=== PATIENT | male | born 1950 | race Caucasian/White ===

== ENCOUNTER 2020-09-09 09:19 | Emergency (ER) | payer MEDICARE, OTHER, SELFPAY ==
[2020-09-09 09:20] VITALS: BP 134/71; PULSE 71; RESP 18; TEMP 36.6; O2SAT 100; BMI 31.6
--- NOTE | 2020-09-09 09:34 | CT_ITS ---
STUDY: CT ABDOMEN AND PELVIS WITHOUT CONTRAST REASON FOR EXAM: Male, 69 years old. Right flank pain RADIATION DOSAGE (If Supplied By Facility): CTDIvol = ( 16.50 ) mGy, DLP = ( 828.63 ) mGycm TECHNIQUE: Transaxial images were obtained from the dome of the diaphragm to the symphysis pubis without oral contrast, and without intravenous contrast. Sagittal and coronal images were reconstructed. Individualized dose optimization techniques were used for this CT. COMPARISON: None. FINDINGS: The visualized lung bases are unremarkable. The visualized portions of the heart are within normal limits. Normal liver. Normal gallbladder and extrahepatic biliary system. Normal spleen. Normal pancreas. Normal bilateral adrenal glands. 2 cm cyst in the right kidney. Minimal nonspecific perinephric stranding. No evidence of hydronephrosis or urinary tract stones. Normal visualized stomach. Normal small intestine. Fecal retention. No evidence of acute diverticulitis. The appendix is visualized and appears normal. There is atherosclerotic calcification of the abdominal aorta, without a demonstrated aneurysm. Normal inferior vena cava. Normal retroperitoneum. Normal urinary bladder. Enlarged prostate. Correlation with PSA level is recommended. Prostatic calcifications. Penile prosthesis is seen with penile pump of the right side of the bladder. Partially visualized metallic density in the region of the penis. Normal abdominal wall. Degenerative changes in the spine worse at the level of L5-S1 with grade 1 retrolisthesis of L5 over S1. CT/Abdomen/Pelvis without Cont IMPRESSION: 1. No evidence of hydronephrosis or urinary tract stones. 2. Enlarged prostate. Correlation with PSA level is recommended. 3. No evidence of acute diverticulitis, appendicitis or focal acute inflammatory process. 4. Penile prosthesis as described above. Electronically Signed: Pratik Milan MD at 10:15 EST Tel , Service support ,
--- NOTE | 2020-09-09 09:35 | ED.DCSUM_ITS ---
- ER Visit Summary Date of Service: 09/09/20 Chief Complaint: Right-sided back pain History of Present Illness: The patient is a [address] Pedraza. He ports he had right-sided back pain for the past 10 days. It is a sharp pain that is 10 of 10 with movement and he is pain-free at rest. He denies any associated nausea or vomiting. He reports he had one episode of diarrhea yesterday. No blood in his stools or black tarry stools. He had frequent urination, but no dysuria or hematuria. Patient does not have a personal or family history of kidney stones. He denies any pain that preceded this. No fall, MVA, or change in activity. Physical Examination: Vitals: Stable. Afebrile. General: Well-nourished and well-developed. Head: Normocephalic atraumatic. Neck: Supple, no lymphadenopathy. No JVD. Nontender. Cardiovascular: Regular rate and rhythm. No murmurs. Respiratory: No respiratory distress. Clear to auscultation bilaterally. Abdominal: Soft, nontender, nondistended, normal bowel sounds. No guarding, rebound, or peritoneal signs. Back: Nontender. No vertebral or paraspinous muscular tenderness to palpation. No CVA tenderness. Extremities: Nontender, no edema. Skin: Normal color, no rash. Neurologic: Alert and oriented ?3. Cranial nerves II through XII are intact. Normal strength and sensation. Psych: Normal affect. Test Results: CBC shows hematocrit of 39.5, lymphocytes of 18, monocytes of 11. Chem-7 shows sodium 132, glucose 150, BUN of 19. UA is normal. Clinical Impression(s) from Imaging Studies Abdomen/Pelvis CT 09/09/20 09:34 IMPRESSION: 1. No evidence of hydronephrosis or urinary tract stones. 2. Enlarged prostate. Correlation with PSA level is recommended. 3. No evidence of acute diverticulitis, appendicitis or focal acute inflammatory process. 4. Penile prosthesis as described above. Electronically Signed: Pratik Milan MD at 10:15 EST Tel , Service support , Emergency Department Course and Treatment: Patient refused pain or nausea medications. He is resting comfortably. Treatment Plan: Patient be discharged prescription for 10 [place] and Colace. He is instructed use a TENS unit and heating pad. Follow-up his primary care physician in 3 to 5 days if not improving. Return to the emergency department for any worsening symptoms. Disposition: To home in improved and stable condition. Impression: One. Back pain. This note was generated with [employer] dictation software. It may contain incorrect words, spelling, and punctuation that were not noted in review of the chart prior to signing ED Disposition - Plan for ED Patient: Instructions: ED Back Pain (Acute or Chronic) Prescriptions: Docusate Sodium [Colace] 100 mg PO DAILY #20 capsule Hydrocodone Bitart/Apap 5-325 [[place] 5MG-325MG] 1 tablet PO Q4H PRN PRN 2 Days #10 tablet PRN Reason: Pain Referrals: Salomon Pedraza MD [Primary Care Provider] - 3-5 Days if not improving
[2020-09-09 09:43] LABS: Absolute Lymphocyte Count 1.54 X10^3/uL (0.83-4.51); Absolute Neutrophil Count 5.7 X10^3/uL (2.0-7.7); Basophil# 0.07 X10^3/uL; Basophil% 0.8 % (0-1); Eosinophil# 0.15 X10^3/uL; Eosinophils% 1.8 % (0-5); Hematocrit 39.5 % (40-54); Hemoglobin 13.7 g/dL (13.0-16.5); Lymphocyte # 1.54 X10^3/ul (4.0); Lymphocyte % 18.4 % (19-41); Mean Corp Hgb Conc 34.7 g/dL (32-36); Mean Corpuscular Hgb 30.9 pg (27.0-32.0); Mean Corpuscular Volume 89.2 fL (80-94); Mean Platelet Vol. 9.6 fl (6.2-12.0); Monocyte# 0.91 X10^3/uL; Monocyte% 10.9 % (0-10); NRBC Flagged by Analyzer 0 % (0-5); Neutrophil # 5.67 X10^3/uL (2.7-7.7); Neutrophil % 67.6 % (47-70); Platelet Count 230 K/mm3 (150-450); RBC Distribution Width SD 39.2 fl (35.1-43.9); Red Blood Count 4.43 M/mm3 (4.6-6.2); White Blood Count 8.4 K/mm3 (4.4-11.0)
[2020-09-09 09:44] VITALS: BP 147/83; PULSE 72; RESP 20
[2020-09-09 09:45] LABS: Bacteria 0 SEEN /hpf (None Seen); Mucous, Urine 0 SEEN /hpf (<or=2+); Red Blood Cells-Urine 0 SEEN /hpf (0-5); Squamous Epithelial Cells - UA 0 SEEN /hpf (0-5); White Blood Cells 0 SEEN /hpf (0-5)
[2020-09-09 09:56] LABS: Anion Gap 5 (5-15); BUN 19 mg/dL (7-18); BUN/Creat Ratio 16.5 RATIO (10-20); Chloride 98 mmol/L (98-107); Creatinine, Serum 1.15 mg/dL (0.70-1.30); EST Glomerular Filtration Rate 67 mL/min (>60); Est Glom Filt Rate - Afr Amer 81 mL/min (>60); Estimated Creatinine Clearance 51.99 ml/min; Glucose 150 mg/dL (74-106); Potassium 4.1 mmol/L (3.5-5.1); Sodium Level 132 mmol/L (136-145)
[2020-09-09 09:59] LABS: Color, Urine Yellow (Yellow); Glucose, Dipstick Normal (Normal); Ketone-Dipstick Negative (Negative); Leukocyte Esterase-Dipstick Negative /ul (Negative); Nitrite-Dipstick Negative (Negative); Occult Blood-Urine Negative /ul (Negative); Protein-Dipstick Negative (Negative); Urine Bilirubin Dipstick Negative (Negative); Urine Clarity Clear (Clear); Urine Urobilinogen Normal (Normal)
[2020-09-09] MEDS: 0.9% Normal Saline 1,000 ML 250 ML IV (10:00)
[2020-09-09 10:46] VITALS: BP 132/62; PULSE 72; RESP 16
== END 2020-09-09 10:47 | disposition home or self-care (01) ==
LOC: ED 10:11
PROVIDERS: Emergency Provider Emergency Medicine; PCP Internal Medicine
DX: M54.9 Dorsalgia, unspecified (principal); R19.7 Diarrhea, unspecified; R35.0 Frequency of micturition; F32.9 Major depressive disorder, single episode, unspecified; Z79.899 Other long term (current) drug therapy
CPT/HCPCS: 74176; 80048; 81001; 85025; 96360; 99283; J7030; A4216

== ENCOUNTER 2021-10-22 18:35 | Emergency (ER) | payer MEDICARE, SELFPAY ==
[2021-10-22 18:36] VITALS: BP 164/67; PULSE 83; RESP 15; TEMP 36; O2SAT 99; BMI 30.7
--- NOTE | 2021-10-22 19:10 | EDS_ITS ---
HPI History of Present Illness Chief Complaint: Hyperglycemia Informant: patient Onset/Context/Timing Onset: Today Narrative Narrative: Patient states he was just not quite feeling well today. Mild headache is noted. No chest pain or shortness of breath. No abdominal pain, nausea, vomiting, or diarrhea. Patient states he checked his blood sugar today and it was 403. He does not normally check his blood sugars but last he knows usually runs in the low 100s. He is on alogliptin and glipizide XL. He denies any recent medication changes or diet changes. [facility] Medical History Bipolar disorder BPH (benign prostatic hyperplasia) Depression Diabetes High cholesterol Hypertension Home Medications escitalopram oxalate [Lexapro] 5 mg PO DAILY 02/16/15 [History Last Taken Unknown] alogliptin 25 mg PO DAILY 09/09/20 [History Last Taken Unknown] amlodipine 10 mg PO DAILY 09/09/20 [History Last Taken Unknown] atorvastatin 20 mg PO QHS 09/09/20 [History Last Taken Unknown] bupropion HCl 150 mg PO DAILY 09/09/20 [History Last Taken Unknown] docusate sodium 100 mg PO DAILY #20 cap 09/09/20 [Rx Last Taken Unknown] hydrochlorothiazide 12.5 mg PO DAILY 09/09/20 [History Last Taken Unknown] lisinopril 40 mg PO DAILY 09/09/20 [History Last Taken Unknown] magnesium oxide 430 mg PO DAILY 09/09/20 [History Last Taken Unknown] metformin 1,000 mg PO BID 09/09/20 [History Last Taken Unknown] tamsulosin 0.4 mg PO QHS 09/09/20 [History Last Taken Unknown] ziprasidone HCl 20 mg PO BID 09/09/20 [History Last Taken Unknown] Allergy/AdvReac Type Severity Reaction Status Date / Time No Known Allergies Allergy Verified 09/09/20 09:22 Social History Smoking Status: Never smoker ROS ROS ED Constitutional Constitutional ED: Denies chills or fever(s) Eyes Eyes: Denies change in vision ENT ENT ED: Denies sore throat Cardiovascular Cardiovascular: Denies chest pain Respiratory/Chest Respiratory/Chest: Denies cough or dyspnea Gastrointestinal Gastrointestinal: Denies abdominal pain, diarrhea, nausea or vomiting Genitourinary Genitourinary ED: Denies dysuria Musculoskeletal Musculoskeletal: Denies back pain Integumentary Denies rash Neurologic Neurologic: Reports headache(s); Denies weakness Allergic/Immunologic Allergic/Immunologic ED: Denies urticaria EXAM Physical Exam Const Vital Signs: 10/22/21 18:36 10/22/21 19:25 10/22/21 20:11 Temperature 96.8 F L Temperature Source Temporal Pulse Rate 83 Pulse Rate [Lying] 79 Pulse Rate [Sitting (for 1 minute prior to obtaining)] 81 Pulse Rate [Standing (for 1 minute prior to obtaining)] 82 Respiratory Rate 15 Respiratory Effort Normal Respiratory Pattern Normal Blood Pressure 164/67 H Blood Pressure [Lying] 136/68 H Blood Pressure [Sitting (for 1 minute prior to obtaining)] 135/63 H Blood Pressure [Standing (for 1 minute prior to obtaining)] 133/78 H Blood Pressure Mean 99 Blood Pressure Mean [Lying] 90 Blood Pressure Mean [Sitting (for 1 minute prior to obtaining)] 87 Blood Pressure Mean [Standing (for 1 minute prior to obtaining)] 96 Pulse Ox 99 Oxygen Delivery Method Room Air 10/22/21 20:52 10/22/21 22:02 Temperature Temperature Source Pulse Rate 66 66 Pulse Rate [Lying] Pulse Rate [Sitting (for 1 minute prior to obtaining)] Pulse Rate [Standing (for 1 minute prior to obtaining)] Respiratory Rate 16 18 Respiratory Effort Respiratory Pattern Blood Pressure 136/78 H 132/74 H Blood Pressure [Lying] Blood Pressure [Sitting (for 1 minute prior to obtaining)] Blood Pressure [Standing (for 1 minute prior to obtaining)] Blood Pressure Mean 97 93 Blood Pressure Mean [Lying] Blood Pressure Mean [Sitting (for 1 minute prior to obtaining)] Blood Pressure Mean [Standing (for 1 minute prior to obtaining)] Pulse Ox 98 98 Oxygen Delivery Method Room Air Room Air Positive well nourished and well developed General Appearance ED: well developed HEENT Reports normocephalic and head/scalp atraumatic Eyes PERRL and EOMs intact bilaterally Neck supple Chest Wall inspection of chest normal and palpation of chest normal Resp normal respiratory effort and clear to auscultation bilaterally Cardio regular rate and regular rhythm GI normal to inspection, nondistended, normoactive bowel sounds and non-tender Palpation: soft Back/Spine no CVA tenderness Extremity normal to inspection Neuro oriented x3 and no sensory deficits noted Sensorium / Orientation: alert Motor Exam: strength 5/5 throughout Psych mental status grossly normal Skin no rashes or lesions noted MDM MDM MDM Narrative Medical decision making narrative: Patient given a liter IV fluids. Lab work obtained. Lab Data Attestation: I reviewed the patient's lab results. Labs: Laboratory Results - last 24 hr 10/22/21 10/22/21 10/22/21 19:20 19:20 19:20 WBC 7.9 RBC 4.51 L Hgb 14.0 Hct 40.1 MCV 88.9 MCH 31.0 MCHC 34.9 RDW Std Deviation 38.8 RDW Coeff of Pedro 12.0 Plt Count 232 MPV 10.3 Immature Gran % (Auto) 0.300 Neut % (Auto) 70.9 H Lymph % (Auto) 16.0 L Moody % (Auto) 7.0 Eos % (Auto) 5.0 Baso % (Auto) 0.8 Absolute Neuts (auto) 5.6 Absolute Lymphs (auto) 1.26 Nucleated RBC % 0 Sodium 136 Potassium 4.0 Chloride 101 Carbon Dioxide 28.0 Anion Gap 7 BUN 18 Creatinine 1.26 Estim Creat Clear Calc 47.82 Est GFR (MDRD) Af Amer 72 Est GFR (MDRD) Non-Af 60 BUN/Creatinine Ratio 14.3 Glucose 398 H Hemoglobin A1c Calcium 8.9 Urine Color Urine Clarity Urine pH Ur Specific [place] Urine Protein Urine Glucose (UA) Urine Ketones Urine Occult Blood Urine Nitrite Urine Bilirubin Urine Urobilinogen Ur Leukocyte Esterase Urine RBC Urine WBC Ur Squamous Epith Cells Urine Bacteria Urine Mucus Acetone Level NEGATIVE POC Glucose 10/22/21 10/22/21 10/22/21 19:20 20:21 20:51 WBC RBC Hgb Hct MCV MCH MCHC RDW Std Deviation RDW Coeff of Pedro Plt Count MPV Immature Gran % (Auto) Neut % (Auto) Lymph % (Auto) Moody % (Auto) Eos % (Auto) Baso % (Auto) Absolute Neuts (auto) Absolute Lymphs (auto) Nucleated RBC % Sodium Potassium Chloride Carbon Dioxide Anion Gap BUN Creatinine Estim Creat Clear Calc Est GFR (MDRD) Af Amer Est GFR (MDRD) Non-Af BUN/Creatinine Ratio Glucose Hemoglobin A1c 7.1 H Calcium Urine Color Yellow Urine Clarity Clear Urine pH 6.0 Ur Specific [place] 1.010 Urine Protein Negative Urine Glucose (UA) 1000 H Urine Ketones Negative Urine Occult Blood Negative Urine Nitrite Negative Urine Bilirubin Negative Urine Urobilinogen Normal Ur Leukocyte Esterase Negative Urine RBC 0 SEEN Urine WBC 0 SEEN Ur Squamous Epith Cells 0-5 SEEN Urine Bacteria 0 SEEN Urine Mucus 0 SEEN Acetone Level POC Glucose 295 H Treatment and Re-Evaluation Narrative: Lab work reveals normal CBC and chemistry studies. Glucose is 398. Hemoglobin A1c is 7.1. Urinalysis significant only for glucose. After liter of IV fluid blood sugar is 295. Patient is given 4 units of subcu insulin as he does not normally use insulin. After 1 hour blood sugar still 269. He did take metformin prior to coming in. In light of the fact the patient is going home to sleep I did not want to drop him too low. I will leave the blood sugar at this level. His labs today were printed for [facility] to [facility]. Patient and are comfortable this plan. Discharge Plan Triage Chief Complaint: Hyperglycemia ED Provider: Mabel Carreon Dx/Rx/DC Orders Clinical Impression: Hyperglycemia Instructions: ED Diabetic Hyperglycemia Prescriptions: No Action escitalopram oxalate [Lexapro] 5 MG tablet 5 mg PO DAILY RF: 0 bupropion HCl 150 MG tablet sustained-release 12 hr 150 mg PO DAILY RF: 0 atorvastatin 20 MG tablet 20 mg PO QHS RF: 0 ziprasidone HCl 20 MG capsule 20 mg PO BID RF: 0 tamsulosin 0.4 MG capsule 0.4 mg PO QHS RF: 0 amlodipine 10 MG tablet 10 mg PO DAILY RF: 0 hydrochlorothiazide 25 MG tablet 12.5 mg PO DAILY RF: 0 lisinopril 40 MG tablet 40 mg PO DAILY RF: 0 metformin 1,000 MG tablet extended release 24hr 1,000 mg PO BID RF: 0 alogliptin 25 MG tablet 25 mg PO DAILY RF: 0 magnesium oxide 200 MG tablet 430 mg PO DAILY RF: 0 docusate sodium 100 MG capsule 100 mg PO DAILY Qty: 20 RF: 0 Primary Care Provider: Salomon Pedraza Referrals: Salomon Pedraza MD [Primary Care Provider] - Activity Restrictions/Additional Instructions: [facility] with [facility] tomorrow as discussed. A copy of your lab work is available for you to take along. Disposition Disposition: Home, Self Care
[2021-10-22] MEDS: 0.9% Normal Saline 1,000 ML 1000 ML IV (19:29)
[2021-10-22 19:36] LABS: Absolute Lymphocyte Count 1.26 X10^3/uL (0.83-4.51); Absolute Neutrophil Count 5.6 X10^3/uL (2.0-7.7); Basophil# 0.06 X10^3/uL; Basophil% 0.8 % (0-1); Eosinophil# 0.39 X10^3/uL; Hematocrit 40.1 % (40-54); Lymphocyte # 1.26 X10^3/ul (0.83-4.51); Mean Corp Hgb Conc 34.9 g/dL (32-36); Mean Corpuscular Volume 88.9 fL (80-94); Mean Platelet Vol. 10.3 fl (6.2-12.0); Monocyte# 0.55 X10^3/uL; NRBC Flagged by Analyzer 0 % (0-5); Neutrophil # 5.59 X10^3/uL (2.7-7.7); Neutrophil % 70.9 % (47-70); Platelet Count 232 K/mm3 (150-450); RBC Distribution Width SD 38.8 fl (35.1-43.9); Red Blood Count 4.51 M/mm3 (4.6-6.2); White Blood Count 7.9 K/mm3 (4.4-11.0)
[2021-10-22 19:52] LABS: Anion Gap 7 (5-15); BUN 18 mg/dL (7-18); BUN/Creat Ratio 14.3 RATIO (10-20); Calcium,Total 8.9 mg/dL (8.5-10.1); Chloride 101 mmol/L (98-107); Creatinine, Serum 1.26 mg/dL (0.70-1.30); EST Glomerular Filtration Rate 60 mL/min (>60); Est Glom Filt Rate - Afr Amer 72 mL/min (>60); Estimated Creatinine Clearance 47.82 ml/min; Glucose 398 mg/dL (74-106); Sodium Level 136 mmol/L (136-145)
[2021-10-22 20:00] LABS: Hemoglobin A1c 7.1 % (3.8-5.6)
[2021-10-22 20:11] VITALS: BP 133/78; BP 135/63; BP 136/68; PULSE 79; PULSE 81; PULSE 82
[2021-10-22 20:27] LABS: Bacteria 0 SEEN /hpf (None Seen); Mucous, Urine 0 SEEN /hpf (<or=2+); Red Blood Cells-Urine 0 SEEN /hpf (0-5); White Blood Cells 0 SEEN /hpf (0-5)
[2021-10-22 20:29] LABS: Color, Urine Yellow (Yellow); Glucose, Dipstick 1000 mg/dl (Normal); Ketone-Dipstick Negative (Negative); Leukocyte Esterase-Dipstick Negative /ul (Negative); Nitrite-Dipstick Negative (Negative); Occult Blood-Urine Negative /ul (Negative); Protein-Dipstick Negative (Negative); Urine Bilirubin Dipstick Negative (Negative); Urine Clarity Clear (Clear); Urine Urobilinogen Normal (Normal)
[2021-10-22 20:50] LABS: Squamous Epithelial Cells - UA 0-5 SEEN /hpf (0-5)
[2021-10-22 20:52] VITALS: BP 136/78; PULSE 66; RESP 16; O2SAT 98
[2021-10-22 20:56] LABS: Bedside Glucose 295 mg/dL (74-106)
[2021-10-22] MEDS: Insulin Lispro 100 UNIT/ML INSULN.PEN SC (21:07)
[2021-10-22 22:02] VITALS: BP 132/74; PULSE 66; RESP 18; O2SAT 98
[2021-10-22 22:10] LABS: Bedside Glucose 269 mg/dL (74-106)
[2021-10-22 22:16] VITALS: BP 134/78; PULSE 78; RESP 14; TEMP 36.7; O2SAT 98
== END 2021-10-22 22:17 | disposition home or self-care (01) ==
PROVIDERS: Emergency Provider Emergency Medicine; PCP Internal Medicine; Visit Provider Emergency Medicine
DX: E11.65 Type 2 diabetes mellitus with hyperglycemia (principal); F31.9 Bipolar disorder, unspecified; I10 Essential (primary) hypertension; Z79.84 Long term (current) use of oral hypoglycemic drugs; E78.00 Pure hypercholesterolemia, unspecified; Z79.899 Other long term (current) drug therapy; N40.0 Benign prostatic hyperplasia without lower urinary tract symptoms
CPT/HCPCS: 80048; 81001; 82009; 82962; 83036; 85025; 96360; 96372; 99284; J7030; A4216

== ENCOUNTER 2022-07-28 08:51 | Emergency (ER) | payer MEDICARE, SELFPAY ==
[2022-07-28 08:52] VITALS: BP 156/70; PULSE 88; RESP 18; TEMP 36.4; O2SAT 100; BMI 30.7
--- NOTE | 2022-07-28 09:02 | EDS_ITS ---
HPI History of Present Illness Chief Complaint: Upper Extremity Injury Informant: patient Occured/Mechanism Comment: None Onset/Context/Timing Onset: Days (5) Timing: Intermittent Location: Posterior L shoulder Current Severity: Mild Maximum Severity: Severe Associated Symptoms Associated Symptoms: Negative for Parasthesia, Weakness or Loss of Funtion Narrative Recent Illness/Hospitalization: Yes (URI, no fevers) [facility] Medical History Bipolar disorder BPH (benign prostatic hyperplasia) Depression Diabetes High cholesterol Hypertension Home Medications escitalopram oxalate 5 mg tablet (Lexapro) 10 mg PO DAILY 02/16/15 [History Last Taken Unknown] alogliptin 25 mg tablet 12.5 mg PO DAILY 09/09/20 [History Last Taken Unknown] amlodipine 10 mg tablet 10 mg PO DAILY 09/09/20 [History Last Taken Unknown] atorvastatin 20 mg tablet 20 mg PO QHS 09/09/20 [History Last Taken Unknown] bupropion HCl 150 mg tablet,12 hr sustained-release 150 mg PO DAILY 09/09/20 [History Last Taken Unknown] hydrochlorothiazide 25 mg tablet 25 mg PO DAILY 09/09/20 [History Last Taken Unknown] lisinopril 40 mg tablet 40 mg PO DAILY 09/09/20 [History Last Taken Unknown] magnesium oxide 420 mg PO DAILY 09/09/20 [History Last Taken Unknown] metformin 1,000 mg tablet,extended release 24hr 1,000 mg PO BID 09/09/20 [History Last Taken Unknown] tamsulosin 0.4 mg capsule 0.4 mg PO QHS 09/09/20 [History Last Taken Unknown] ziprasidone HCl 20 mg capsule 20 mg PO BID 09/09/20 [History Last Taken Unknown] cholecalciferol (vitamin D3) 50 mcg (2,000 unit) capsule (Vitamin D3) 50 mcg PO DAILY 07/28/22 [History Last Taken Unknown] glipizide 2.5 mg tablet, extended release 24 hr 2.5 mg PO BREAKFAST 07/28/22 [History Last Taken Unknown] meloxicam 15 mg tablet 15 mg PO PRN PRN Pain 07/28/22 [History Last Taken Unknown] Allergy/AdvReac Type Severity Reaction Status Date / Time No Known Allergies Allergy Verified 07/28/22 09:02 Social History Smoking Status: Former smoker ROS ROS ED Constitutional Constitutional ED: Denies chills or fever(s) Eyes Eyes: Denies blurry vision ENT ENT ED: Denies ear pain Cardiovascular Cardiovascular: Denies chest pain, palpitations or racing heartbeat Respiratory/Chest Respiratory/Chest: Denies cough, dyspnea or dyspnea on exertion Gastrointestinal Gastrointestinal: Denies abdominal pain, nausea or vomiting Genitourinary Genitourinary ED: Denies dysuria Musculoskeletal Musculoskeletal: Denies back pain, myalgias or neck pain Integumentary Denies Abrasions or rash Neurologic Neurologic: Denies headache(s), paresthesias or weakness Psychiatric Psychiatric: Denies anxiety Endocrine Endocrinology: Denies cold intolerance Hematologic/Lymphatic Hematologic/Lymphatic: Denies easy bleeding Allergic/Immunologic Allergic/Immunologic ED: Denies mouth swelling EXAM Physical Exam Const Vital Signs: 07/28/22 08:52 Temperature 97.5 F L Temperature Source Temporal Pulse Rate 88 Respiratory Rate 18 Blood Pressure 156/70 H Blood Pressure Mean 98 Pulse Ox 100 Oxygen Delivery Method Room Air Positive well nourished and well developed General Appearance ED: well developed Eyes EOMs intact bilaterally Neck full ROM and supple Chest Wall inspection of chest normal and palpation of chest normal Resp normal respiratory effort and clear to auscultation bilaterally Cardio regular rate, regular rhythm, S1 normal heart sound and S2 normal heart sound Back/Spine Cervical Spine: Negative for cervical spine tenderness Extremity normal to inspection and full ROM Extremity Narrative: TTP posterior L shoulder, NVID, skin normal, ROM normal Neuro oriented x3, CN's II-XII intact bilaterally, moves all extremities, no focal motor deficits and no sensory deficits noted Sensorium / Orientation: alert Psych mental status grossly normal Skin Lesions: no lesions Rashes: no rashes MDM MDM MDM Narrative Medical decision making narrative: Suspect this is myofascial pain, tendinitis, muscle spasm. There is no sign of skin changes to suggest shingles. No redness, warmth, swelling to suggest gout or septic arthritis. Range of motion is good. Nothing to suggest referred pain from chest. He is neurovascularly intact. X-rays were reviewed by the radiologist and myself and showed no acute abnormalities. We will treat for myofascial pain. Continue taking his home medications. We will add cyclobenzaprine. Precautions were discussed. He will follow-up with his orthopedist for outpatient management, therapy, and further care. Disposition is discharged home. Impression #1 left shoulder pain Discharge Plan Triage Chief Complaint: Upper Extremity Injury ED Provider: Helder Hdez Dx/Rx/DC Orders Prescriptions: No Action escitalopram oxalate [Lexapro] 5 MG tablet 10 mg PO DAILY bupropion HCl 150 MG tablet sustained-release 12 hr 150 mg PO DAILY atorvastatin 20 MG tablet 20 mg PO QHS ziprasidone HCl 20 MG capsule 20 mg PO BID tamsulosin 0.4 MG capsule 0.4 mg PO QHS amlodipine 10 MG tablet 10 mg PO DAILY hydrochlorothiazide 25 MG tablet 25 mg PO DAILY lisinopril 40 MG tablet 40 mg PO DAILY metformin 1,000 MG tablet extended release 24hr 1,000 mg PO BID alogliptin 25 MG tablet 12.5 mg PO DAILY magnesium oxide 200 MG tablet 420 mg PO DAILY meloxicam 15 mg tablet 15 mg PO PRN PRN (Reason: Pain) Label Comments: TAKE 1 TABLET BY MOUTH ONCE DAILY WITH FOOD glipizide 2.5 mg tablet extended release 24hr 2.5 mg PO BREAKFAST Label Comments: TAKE 1 TABLET BY MOUTH EVERY DAY WITH BREAKFAST cholecalciferol (vitamin D3) [Vitamin D3] 50 mcg (2,000 unit) Capsule 50 mcg PO DAILY Primary Care Provider: Salomon Pedraza Referrals: Salomon Pedraza MD [Primary Care Provider] -
--- NOTE | 2022-07-28 09:02 | RAD_ITS ---
STUDY: X-RAY - LEFT SHOULDER REASON FOR EXAM: Male, 71 years old. pain TECHNIQUE: 2 view(s) of the shoulder. COMPARISON: None. FINDINGS: Normal glenohumeral articulation. Normal acromioclavicular joint. Normal acromion. Normal humeral head and visualized proximal humerus. The soft tissue structures are unremarkable. There is no demonstrated fracture. Normal visualized pulmonary apex. RAD/Shoulder min 2 Views IMPRESSION: Normal x-ray examination of the shoulder. Electronically Signed: Rickie Enriquez MD at 10:33 EST ,
[2022-07-28 10:57] VITALS: BP 154/73; PULSE 85; RESP 16; TEMP 36.7; O2SAT 97
[2022-07-28] MEDS: cycloBENZAPRine HCl 10 MG Tablet PO (11:09)
== END 2022-07-28 11:10 | disposition home or self-care (01) ==
PROVIDERS: Emergency Provider Emergency Medicine; PCP Internal Medicine; Visit Provider Emergency Medicine
DX: M25.512 Pain in left shoulder (principal); F31.9 Bipolar disorder, unspecified; E11.9 Type 2 diabetes mellitus without complications; I10 Essential (primary) hypertension; E78.00 Pure hypercholesterolemia, unspecified; Z87.891 Personal history of nicotine dependence; N40.0 Benign prostatic hyperplasia without lower urinary tract symptoms; Z79.899 Other long term (current) drug therapy; Z79.84 Long term (current) use of oral hypoglycemic drugs
CPT/HCPCS: 73030; 99283

== ENCOUNTER 2024-08-04 14:38 | Emergency (ER) | payer MEDICARE, SELFPAY ==
[2024-08-04 14:39] VITALS: BP 171/78; PULSE 72; RESP 20; TEMP 36.6; O2SAT 98; BMI 29.9
--- NOTE | 2024-08-04 15:25 | CT_ITS ---
STUDY: CT ABDOMEN AND PELVIS WITH CONTRAST REASON FOR EXAM: Male, 73 years old. right inguinal pain RADIATION DOSAGE (If Supplied By Facility): CTDIvol = ( 13.24 ) mGy, DLP = ( 944.09 ) mGycm TECHNIQUE: Transaxial images were obtained from the dome of the diaphragm to the symphysis pubis without oral contrast. IV 100mL [id number]-300 was administered. Sagittal and coronal images were reconstructed. Individualized dose optimization techniques were used for this CT. COMPARISON: September 09, 2020. FINDINGS: The visualized lung bases are unremarkable. The visualized portions of the heart are within normal limits. Normal liver. Normal gallbladder and extrahepatic biliary system. Normal spleen. Normal pancreas. 1 cm right adrenal nodule. 2.6 cm cyst in the right kidney. Normal left kidney. Segmental ureteral dilatation bilaterally. Normal visualized stomach. Normal small intestine. Normal colon. The appendix is visualized and appears normal. Normal abdominal aorta. Normal inferior vena cava. Normal retroperitoneum. Normal urinary bladder. Prostate is 5.6 x 5.8 cm. A penile implant is in place. Mild fatty density in the right inguinal canal. Mild subcutaneous edema anterior to the pubic symphysis. Small fatty umbilical hernia Degenerative vertebral changes. CT/Abdomen/Pelvis W IV Cont ONLY IMPRESSION: A penile implant is in place. Mild fatty density in the right inguinal canal. Mild subcutaneous edema anterior to the pubic symphysis. Small fatty umbilical hernia. Right renal cyst. Mild subsegmental ureteral dilatation bilaterally. Right adrenal nodule. Electronically Signed: Evan Butcher DO at 16:39 EST ,
[2024-08-04] MEDS: 0.9% Normal Saline (1000mL) 1,000 ML 999 ML IV (15:31)
[2024-08-04 15:35] LABS: Bacteria 0 SEEN /hpf (None Seen); Mucous, Urine 0 SEEN /hpf (<or=2+); Squamous Epithelial Cells - UA 0 SEEN /hpf (0-5)
[2024-08-04 15:38] LABS: Absolute Neutrophil Count 6.5 X10^3/uL (2.0-7.7); Basophil# 0.06 X10^3/uL; Basophil% 0.6 % (0-1); Eosinophil# 0.27 X10^3/uL; Eosinophils% 2.9 % (0-5); Hematocrit 42.7 % (40-54); Hemoglobin 14.7 g/dL (13.0-16.5); Lymphocyte % 17.1 % (19-41); Mean Corp Hgb Conc 34.4 g/dL (32-36); Mean Corpuscular Hgb 30.4 pg (27.0-32.0); Mean Corpuscular Volume 88.2 fL (80-94); Mean Platelet Vol. 9.7 fl (6.2-12.0); Monocyte# 0.85 X10^3/uL; Monocyte% 9.1 % (0-10); NRBC Flagged by Analyzer 0 % (0-5); Neutrophil # 6.54 X10^3/uL (2.7-7.7); Neutrophil % 69.8 % (47-70); Platelet Count 231 K/mm3 (150-450); RBC Distribution Width SD 41.7 fl (35.1-43.9); Red Blood Count 4.84 M/mm3 (4.6-6.2); White Blood Count 9.4 K/mm3 (4.4-11.0)
[2024-08-04 15:42] LABS: Color, Urine Yellow (Yellow); Glucose, Dipstick 1000 mg/dl (Normal); Ketone-Dipstick Negative (Negative); Leukocyte Esterase-Dipstick Negative /ul (Negative); Nitrite-Dipstick Negative (Negative); Occult Blood-Urine Negative /ul (Negative); Protein-Dipstick Negative (Negative); Specific Gravity, Urine 1.005 (1.002-1.030); Urine Bilirubin Dipstick Negative (Negative); Urine Clarity Clear (Clear); Urine Urobilinogen Normal (Normal)
[2024-08-04 15:55] LABS: ALB/GLOB Ratio 1.1 RATIO (0.9-2.4); AST(SGOT) 10 U/L (15-37); Alanine Aminotransfer ALT/SGPT 31 U/L (16-61); Albumin, Serum 3.9 g/dL (3.2-5.0); Alkaline Phosphatase 129 U/L (45-117); Anion Gap 4 (5-15); BUN 22 mg/dL (7-18); Calcium,Total 9.7 mg/dL (8.5-10.1); Chloride 104 mmol/L (98-107); Creatinine, Serum 1.16 mg/dL (0.70-1.30); EST Glomerular Filtration Rate 65 mL/min (>60); Est Glom Filt Rate - Afr Amer 79 mL/min (>60); Estimated Creatinine Clearance 56.86 ml/min; Globulin 3.7 g/dL (2.2-4.2); Glucose 209 mg/dL (74-106); Lipase 46 U/L (13-75); Potassium 4.4 mmol/L (3.5-5.1); Protein, Total 7.6 g/dL (6.4-8.2); Sodium Level 135 mmol/L (136-145)
--- NOTE | 2024-08-04 16:12 | EDS_ITS ---
HPI History of Present Illness Chief Complaint: Other, Pain/Inj Narrative Narrative: Patient is a 73-year-old male with past medical history of bipolar disorder, BPH, hypertension, diabetes, depression, hypercholesteremia, CAD on Plavix status post stent back in December who presents to the emergency department with a chief complaint of lower groin pain. 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 Patient states he has been urinating normal for self denies any blood in his urine. Patient states that today he became very uncomfortable in his groin region therefore he came here for further evaluation management. Patient denies any low back pain. [facility] Medical History Depression High cholesterol Bipolar disorder BPH (benign prostatic hyperplasia) Diabetes Hypertension Home Medications ?Medication ?Instructions ?Recorded ?Last Taken ?Type escitalopram oxalate 5 mg tablet 10 mg PO DAILY 02/16/15 Unknown History (Lexapro) alogliptin 25 mg tablet 12.5 mg PO DAILY 09/09/20 Unknown History amlodipine 10 mg tablet 10 mg PO DAILY 09/09/20 Unknown History atorvastatin 20 mg tablet 20 mg PO QHS 09/09/20 Unknown History bupropion HCl 150 mg tablet,12 hr 150 mg PO DAILY 09/09/20 Unknown History sustained-release hydrochlorothiazide 25 mg tablet 25 mg PO DAILY 09/09/20 Unknown History lisinopril 40 mg tablet 20 mg PO DAILY 09/09/20 Unknown History magnesium oxide 420 mg PO DAILY 09/09/20 Unknown History metformin 1,000 mg tablet,extended 1,000 mg PO BID 09/09/20 Unknown History release 24hr (osmotic) tamsulosin 0.4 mg capsule 0.4 mg PO QHS 09/09/20 Unknown History ziprasidone HCl 20 mg capsule 20 mg PO BID 09/09/20 Unknown History cholecalciferol (vitamin D3) 50 50 mcg PO DAILY 07/28/22 Unknown History mcg (2,000 unit) capsule (Vitamin D3) cyclobenzaprine 10 mg tablet 10 mg PO TID PRN Muscle Spasm #20 07/28/22 Unknown Rx TABLETS glipizide 2.5 mg tablet, extended 2.5 mg PO BREAKFAST 07/28/22 Unknown History release 24 hr meloxicam 15 mg tablet 15 mg PO PRN PRN Pain 07/28/22 Unknown History aspirin 81 mg tablet,delayed 81 mg PO DAILY 08/04/24 Unknown History release clopidogrel 75 mg tablet 75 mg PO DAILY 08/04/24 Unknown History empagliflozin 25 mg tablet 12.5 mg PO DAILY 08/04/24 Unknown History melatonin 3 mg capsule 3 mg PO QHS 08/04/24 Unknown History rosuvastatin 20 mg tablet (Crestor) 20 mg PO QHS 08/04/24 Unknown History semaglutide 0.25 mg or 0.5 mg (2 0.5 mg subcut QWEEK 08/04/24 Unknown History mg/3 mL) subcutaneous pen injector (Ozempic) Allergy/AdvReac Type Severity Reaction Status Date / Time No Known Allergies Allergy Verified 08/04/24 14:38 Social History Smoking Status: Current some day smoker tobacco type: cigars ROS ROS ED ROS Narrative Constitutional: Denies any fevers, chills, headaches, lightness, dizziness Eyes: Denies change in vision double vision blurry vision Cardiovascular: Chest pain or palpitations Respiratory: Denies cough and shortness of breath Abdomen: Denies abdominal pain nausea vomit diarrhea : Complains of groin pain as noted above, denies painful urination, hematuria, polyuria Neurological: Denies any numbness, weakness, tingling Musculoskeletal: Denies back pain with Skin: Denies rashes or lesions EXAM Physical Exam Narrative Exam Narrative: General: Patient lying in bed rest comfortably did not appear to be acute distress Head: Atraumatic, normocephalic Eyes: PERRL bilaterally, EOMI bilateral, no conjunctival injection noted Neck: Soft, supple, trachea midline Cardiovascular: Regular rate and rhythm Respiratory: Clear to auscultation bilaterally Abdomen: Soft, nondistended, nontender to palpation, bowel sounds present x 4 Genitourinary: Patient has prosthetic implant noted in the right testicle, no tenderness palpation over the bilateral epididymitis, patient has normal lie of the bilateral testicles with cremasteric reflex noted bilaterally, no urethral discharge, no evidence of inguinal hernias on exam bilaterally, no concern for Andres's gangrene Musculoskeletal: No tenderness palpation midline of the cervical, thoracolumbar spine Extremities: +5/5 strength noted in the bilateral lower extremities Neurological: Patient following commands knew that he was at [facility] year is 2024 Skin: Warm, dry, intact Const Vital Signs: 08/04/24 14:39 08/04/24 15:13 08/04/24 16:38 Temperature 97.9 F Temperature Source Temporal Pulse Rate 72 78 Respiratory Rate 20 H 15 Respiratory Effort Normal Respiratory Pattern Normal Blood Pressure 171/78 H 156/74 H Blood Pressure Mean 109 101 Pulse Ox 98 98 Oxygen Delivery Method Room Air Room Air MDM MDM MDM Narrative Medical decision making narrative: Patient is a 73-year-old male who presents to the emergency department chief complaint of bilateral groin pain. He states that this been going on for approximately 2 weeks but has been progressively worsening to the point today where he was significantly sore while working therefore he came here further evaluation management. On the differential diagnose includes Melamin to inguinal hernia, bowel obstruction, appendicitis, UTI. Once workup is obtained reviewed he will be reevaluated. Patient's CBC was reviewed and showed no evidence leukocytosis white blood count normal at 9.4, hemoglobin stable 14.7, platelet count was noted to be normal at 231. Patient sodium normal 135, potassium 4.4, creatinine normal at 1.16. Patient's AST and ALT were 10 and 31 respectively. Patient lipase normal at 46. Patient's urinalysis showed no evidence of infection. Patient CT abdomen pelvis with IV contrast was reviewed showed a penile implant is in place. Mild fatty density in the right inguinal canal. Mild subcutaneous edema anterior to the pubic symphysis. Small fatty umbilical hernia noted. Right renal cyst. Mild subsegmental ureteral dilation bilaterally right adrenal nodule. Discussed case with general surgeon Dr. Norwood reviewed the scans and states that his scan is similar to scan he had in 2020 and was advised him to follow-up with the surgeon that put his penile implant and. Patient was advised to rotate Tylenol and ibuprofen [id number] I did discuss this plan and results with him he is agreeable this plan he would like to go home at this point time all question concerns answered he is discharged home in stable condition. Patient was bladder scanned here in the emergency department and had 618 mL in his bladder he urinated and had a repeat bladder scan and was noted to have 180 mL in his bladder. Patient will be discharged home in stable condition. Lab Data Labs: Laboratory Results - last 24 hr 08/04/24 15:30 WBC 9.4 RBC 4.84 Hgb 14.7 Hct 42.7 MCV 88.2 MCH 30.4 MCHC 34.4 RDW Std Deviation 41.7 RDW Coeff of Pedro 13.0 Plt Count 231 MPV 9.7 Immature Gran % (Auto) 0.500 Neut % (Auto) 69.8 Lymph % (Auto) 17.1 L Porter % (Auto) 9.1 Eos % (Auto) 2.9 Baso % (Auto) 0.6 Absolute Neuts (auto) 6.5 Absolute Lymphs (auto) 1.60 Nucleated RBC % 0 Sodium 135 L Potassium 4.4 Chloride 104 Carbon Dioxide 27.0 Anion Gap 4 L BUN 22 H Creatinine 1.16 Estim Creat Clear Calc 56.86 Est GFR (MDRD) Af Amer 79 Est GFR (MDRD) Non-Af 65 BUN/Creatinine Ratio 19.0 Glucose 209 H Calcium 9.7 Total Bilirubin 0.40 AST 10 L ALT 31 Alkaline Phosphatase 129 H Total Protein 7.6 Albumin 3.9 Globulin 3.7 Albumin/Globulin Ratio 1.1 Lipase 46 Urine Color Yellow Urine Clarity Clear Urine pH 6.0 Ur Specific Jenners 1.005 Urine Protein Negative Urine Glucose (UA) 1000 H Urine Ketones Negative Urine Occult Blood Negative Urine Nitrite Negative Urine Bilirubin Negative Urine Urobilinogen Normal Ur Leukocyte Esterase Negative Urine RBC 0-5 SEEN Urine WBC 0-5 SEEN Ur Squamous Epith Cells 0 SEEN Urine Bacteria 0 SEEN Urine Mucus 0 SEEN Radiography Diagnostic Testing: Clinical Impression(s) from Imaging Studies Abdomen/Pelvis CT 08/04/24 15:25 IMPRESSION: A penile implant is in place. Mild fatty density in the right inguinal canal. Mild subcutaneous edema anterior to the pubic symphysis. Small fatty umbilical hernia. Right renal cyst. Mild subsegmental ureteral dilatation bilaterally. Right adrenal nodule. Electronically Signed: Evan Butcher DO at 16:39 EST Reading Location ID and State: [facility] / MD Tel [phone], Service support , Discharge Plan Triage Chief Complaint: Other, Pain/Inj ED Provider: Arvin Obrien Dx/Rx/DC Orders Clinical Impression: Abdominal pain, Right groin pain Prescriptions: No Action escitalopram oxalate [Lexapro] 5 MG tablet 10 mg PO DAILY bupropion HCl 150 MG tablet sustained-release 12 hr 150 mg PO DAILY atorvastatin 20 MG tablet 20 mg PO QHS ziprasidone HCl 20 MG capsule 20 mg PO BID tamsulosin 0.4 MG capsule 0.4 mg PO QHS amlodipine 10 MG tablet 10 mg PO DAILY hydrochlorothiazide 25 MG tablet 25 mg PO DAILY lisinopril 40 MG tablet 20 mg PO DAILY metformin 1,000 MG tablet extended release 24hr 1,000 mg PO BID alogliptin 25 MG tablet 12.5 mg PO DAILY magnesium oxide 200 MG tablet 420 mg PO DAILY meloxicam 15 mg tablet 15 mg PO PRN PRN (Reason: Pain) Patient Comments: TAKE 1 TABLET BY MOUTH ONCE DAILY WITH FOOD glipizide 2.5 mg tablet extended release 24hr 2.5 mg PO BREAKFAST Patient Comments: TAKE 1 TABLET BY MOUTH EVERY DAY WITH BREAKFAST cholecalciferol (vitamin D3) [Vitamin D3] 50 mcg (2,000 unit) Capsule 50 mcg PO DAILY cyclobenzaprine 10 mg tablet 10 mg PO TID PRN (Reason: Muscle Spasm) Qty: 20 0RF clopidogrel 75 mg tablet 75 mg PO DAILY rosuvastatin [Crestor] 20 mg tablet 20 mg PO QHS melatonin 3 mg capsule 3 mg PO QHS empagliflozin 25 mg tablet 12.5 mg PO DAILY Ozempic 0.25 mg or 0.5 mg (2 mg/3 mL) pen injector 0.5 mg subcut QWEEK Rx Instructions: for 4 weeks aspirin 81 mg tablet,delayed release (DR/EC) 81 mg PO DAILY Primary Care Provider: Salomon Pedraza Referrals: Salomon Pedraza MD [Primary Care Provider] - Activity Restrictions/Additional Instructions: Follow-up with your doctor that put your implant in. Return with worsening symptoms or concerns. You should be evaluated if you have worsening pain p ersistent vomiting cannot keep anything down or fevers. Follow-up with your primary care physician as well. Print Language: Gibralt[place] Disposition Disposition: Home, Self Care
[2024-08-04 16:30] LABS: Red Blood Cells-Urine 0-5 SEEN /hpf (0-5); White Blood Cells 0-5 SEEN /hpf (0-5)
[2024-08-04 16:38] VITALS: BP 156/74; PULSE 78; RESP 15; O2SAT 98
--- NOTE | 2024-08-04 17:55 | ED.RN ---
Bladder scan 618, made pt void, rescan was 183. Dr. Obrien made aware
[2024-08-04 18:09] VITALS: BP 143/77; PULSE 85; RESP 20; TEMP 36.8; O2SAT 97
== END 2024-08-04 18:13 | disposition home or self-care (01) ==
PROVIDERS: Emergency Provider Emergency Medicine; PCP Internal Medicine; Referring Provider Emergency Medicine; Visit Provider Emergency Medicine
DX: R10.31 Right lower quadrant pain (principal); E11.9 Type 2 diabetes mellitus without complications; E78.00 Pure hypercholesterolemia, unspecified; I10 Essential (primary) hypertension; I25.10 Atherosclerotic heart disease of native coronary artery without angina pectoris; Z79.02 Long term (current) use of antithrombotics/antiplatelets; Z95.5 Presence of coronary angioplasty implant and graft; F32.A Depression, unspecified; Z79.899 Other long term (current) drug therapy; Z79.84 Long term (current) use of oral hypoglycemic drugs; N40.0 Benign prostatic hyperplasia without lower urinary tract symptoms; Z79.82 Long term (current) use of aspirin; Z79.85 Long-term (current) use of injectable non-insulin antidiabetic drugs; F17.200 Nicotine dependence, unspecified, uncomplicated; X50.0XXA Overexertion from strenuous movement or load, initial encounter; Y93.89 Activity, other specified; Y92.89 Other specified places as the place of occurrence of the external cause
CPT/HCPCS: 74177; 80053; 81001; 83690; 85025; 96360; 99283; Q9967; A4216